=== PATIENT | male | born 1950 | race Caucasian/White ===

== ENCOUNTER → 2016-08-14 | Outpatient (CLI) | payer OTHER, MEDICARE ==
[~2016-08-14] MED LIST: ALBUTEROL SULFAT3 M3 IH; ASPIRIN 81M81 MG/TA2 PO; CHROMAX PO; COMPLETE SENIOR1 TA1 PO; COZAAR 50MG50 MG/TAB PO; EPA1000 MG PO; GLUCOPHAGE500 MG/TAB PO; GLUCOSAMINE & C1 CA1 PO; LANAMINS1 CAP PO; MELATONIN5 MG PO; NORCO 325 MG-51 TAB PO; NORVASC 5MG5 MG/TAB PO; PROAIR HFA0.09 MG/AC IH; RT SPIRIVA18 MCG IH
== END ==
LOC: COL.RAD 09:13
PROVIDERS: Orthopaedic Surgery Sports Medicine
DX: G57.83 Other specified mononeuropathies of bilateral lower limbs (principal); Z98.1 Arthrodesis status; Q06.8 Other specified congenital malformations of spinal cord; M48.06 Spinal stenosis, lumbar region
CPT/HCPCS: A9585

== ENCOUNTER 2017-01-23 16:00 | Outpatient (RCR) | payer OTHER, MEDICARE | END 2017-02-28 13:54 | disposition still patient (30) | LOC: WSPT 16:00 | DX: M48.02 Spinal stenosis, cervical region (principal); Z98.1 Arthrodesis status | CPT/HCPCS: G0283-GP; G8981-GP; G8982-GP ==

== ENCOUNTER 2017-07-11 15:30 | Outpatient (RCR) | payer BC, MEDICARE | END 2017-07-18 16:51 | disposition home or self-care (01) | LOC: WSPT 15:30 | DX: Z47.89 Encounter for other orthopedic aftercare (principal); M89.8X8 Other specified disorders of bone, other site; R29.6 Repeated falls; Z98.890 Other specified postprocedural states | CPT/HCPCS: G8978-GP; G8979-GP; G8980-GP ==

== ENCOUNTER 2018-05-27 15:45 | Outpatient (RCR) | payer BC, MEDICARE ==
[2018-06-03] MEDS ORDERED: BENICAR 20MG TA20 MG PO (21:20)
[2018-06-03] MEDS ORDERED: FLEXERIL 1010 MG/TAB (21:21)
[2018-06-05] MEDS ORDERED: PROTONIX 40MG T40 MG PO (09:32)
[2018-06-14] MEDS ORDERED: PRIL40 PO (09:50)
[2018-06-14] MEDS ORDERED: CARAFATE 1GM1 G (09:50)
== END 2018-06-24 | disposition home or self-care (01) ==
LOC: WSPT
DX: M47.16 Other spondylosis with myelopathy, lumbar region (principal); Z79.84 Long term (current) use of oral hypoglycemic drugs; Z79.82 Long term (current) use of aspirin; Z79.899 Other long term (current) drug therapy; Z98.890 Other specified postprocedural states
CPT/HCPCS: G8978-GP; G8979-GP

== ENCOUNTER 2018-06-03 19:42 | Inpatient (IN) | payer OTHER, MEDICARE ==
[~2018-06-03] VITALS: Ht 175.3 cm; Wt 121.5 kg
[2018-06-03 20:18] LABS: BASO # 0.1 (0.0-0.2); BASO % 0.9 % (0.0-2.0); EOS # 0.4 (0.0-0.7); EOS % 2.9 % (0-4.0); GRAN # 6.2 (1.4-6.5); GRAN % 50.9 % (42.2-75.2); HEMATOCRIT 40.8 % (42.0-52.0); HEMOGLOBIN 13.4 g/dl (13.5-18.0); LYMPH # 3.9 (1.2-3.4); LYMPH % 32.4 % (20.0-51.0); MEAN CELL VOLUME 87 fl (80.0-100.0); MEAN CORPUSCULAR HEMOGLOBIN 29 pg (27.0-31.0); MEAN CORPUSCULAR HGB CONC 33 g/dl (33.0-37.0); MEAN PLATELET VOLUME 11.2 fl (7.4-10.4); MONO # 1.5 (0.1-0.6); MONO % 12.6 % (1.7-9.3); PLATELET COUNT 287 K/mm3 (130-400); RED BLOOD COUNT 4.67 M/mm3 (4.20-5.60); REDCELL DISTRIBUTION WIDTH-CV 13.7 % (11.5-14.5)
[2018-06-03 20:23] LABS: PROTHROMBIN TIME 10.8 SECONDS (9.7-12.8)
[2018-06-03 20:26] LABS: PARTIAL THROMBOPLASTIN TIME 29.3 SECONDS (26.0-37.0)
[2018-06-03 20:31] LABS: ALBUMIN 4.1 gm/dL (3.5-5.0); BILIRUBIN,TOTAL 0.3 mg/dL (0.0-1.0); C-REACTIVE PROTEIN 0.5 mg/dL (0.0-0.9); CALCIUM 9.2 mg/dL (8.4-10.2); POTASSIUM 4.5 mmol/L (3.4-5.0)
[2018-06-03] MEDS ORDERED: BENICAR 20MG TA20 MG PO (21:20)
[2018-06-03] MEDS ORDERED: FLEXERIL 1010 MG/TAB (21:21)
[2018-06-03 22:33] VITALS: BP 116/77; PULSE 96; TEMP 98
[2018-06-03 22:34] VITALS: BP 116/77; PULSE 96; TEMP 98
[2018-06-03 22:44] LABS: TROPONIN-I < 0.012 ng/mL (0.000-0.034)
[2018-06-04 02:43] LABS: HEMATOCRIT 33.9 % (42.0-52.0); HEMOGLOBIN 11.1 g/dl (13.5-18.0)
[2018-06-04 04:00] VITALS: BP 102/67; PULSE 102; TEMP 98.8
[2018-06-04 05:30] LABS: BASO # 0.1 (0.0-0.2); EOS # 0.2 (0.0-0.7); EOS % 1.8 % (0-4.0); GRAN # 6.2 (1.4-6.5); GRAN % 57.3 % (42.2-75.2); LYMPH # 3.1 (1.2-3.4); MEAN CELL VOLUME 89 fl (80.0-100.0); MEAN CORPUSCULAR HEMOGLOBIN 29 pg (27.0-31.0); MEAN CORPUSCULAR HGB CONC 33 g/dl (33.0-37.0); MEAN PLATELET VOLUME 11.7 fl (7.4-10.4); MONO # 1.3 (0.1-0.6); MONO % 11.6 % (1.7-9.3); PLATELET COUNT 214 K/mm3 (130-400); RED BLOOD COUNT 3.85 M/mm3 (4.20-5.60); REDCELL DISTRIBUTION WIDTH-CV 13.6 % (11.5-14.5)
[2018-06-04 06:43] LABS: HEMATOCRIT 30.8 % (42.0-52.0); HEMOGLOBIN 9.9 g/dl (13.5-18.0)
[2018-06-04 07:05] LABS: CALCIUM 7.6 mg/dL (8.4-10.2); CREATININE, serum 0.9 mg/dL (0.66-1.25); POTASSIUM 4.6 mmol/L (3.4-5.0)
[2018-06-04 08:03] VITALS: BP 106/65; PULSE 93; TEMP 98
[2018-06-04 11:01] LABS: HEMATOCRIT 27.2 % (42.0-52.0); HEMOGLOBIN 8.7 g/dl (13.5-18.0)
[2018-06-04 11:22] LABS: RETIC # 0.06 M/mm3 (0.02-0.16); RETIC % 1.9 % (0.5-3.52)
[2018-06-04 11:46] VITALS: BP 113/62; PULSE 91; TEMP 98.8
[2018-06-04 14:07] LABS: HEMATOCRIT 26.5 % (42.0-52.0); HEMOGLOBIN 8.9 g/dl (13.5-18.0)
[2018-06-04 16:26] VITALS: BP 103/63; PULSE 96; TEMP 97.8
[2018-06-04 19:00] LABS: HEMATOCRIT 25.4 % (42.0-52.0); HEMOGLOBIN 8.3 g/dl (13.5-18.0)
[2018-06-04 20:08] VITALS: BP 114/37; PULSE 99; TEMP 98.1
[2018-06-04 22:34] LABS: HEMOGLOBIN 7.8 g/dl (13.5-18.0)
[2018-06-04 22:35] LABS: HEMATOCRIT 23.5 % (42.0-52.0)
[2018-06-05 04:19] VITALS: BP 121/68; PULSE 82; TEMP 98.1
[2018-06-05 06:11] LABS: BASO # 0.1 (0.0-0.2); BASO % 0.8 % (0.0-2.0); EOS # 0.2 (0.0-0.7); EOS % 2.2 % (0-4.0); GRAN # 5.3 (1.4-6.5); GRAN % 56.6 % (42.2-75.2); LYMPH # 2.7 (1.2-3.4); LYMPH % 28.8 % (20.0-51.0); MEAN CELL VOLUME 89 fl (80.0-100.0); MEAN CORPUSCULAR HGB CONC 33 g/dl (33.0-37.0); MEAN PLATELET VOLUME 11.3 fl (7.4-10.4); PLATELET COUNT 198 K/mm3 (130-400); RED BLOOD COUNT 2.84 M/mm3 (4.20-5.60); REDCELL DISTRIBUTION WIDTH-CV 13.6 % (11.5-14.5)
[2018-06-05 06:12] LABS: HEMATOCRIT 25.3 % (42.0-52.0); HEMOGLOBIN 8.3 g/dl (13.5-18.0); MEAN CORPUSCULAR HEMOGLOBIN 29 pg (27.0-31.0)
[2018-06-05 06:39] LABS: CALCIUM 7.7 mg/dL (8.4-10.2); CREATININE, serum 0.79 mg/dL (0.66-1.25); POTASSIUM 4.1 mmol/L (3.4-5.0)
[2018-06-05 07:56] VITALS: BP 136/74; PULSE 90; TEMP 97.3
[2018-06-05] MEDS ORDERED: PROTONIX 40MG T40 MG PO (09:32)
== END 2018-06-05 10:32 | disposition home or self-care (01) | DRG 378 ==
LOC: COL.ER 19:42 → MEDICAL 21:31
PROVIDERS: Emergency Medicine; Internal Medicine Gastroenterology; Nurse Practitioner Family; Physician Assistant
PROC: 0DB68ZX Excision of Stomach, Via Natural or Artificial Opening Endoscopic, Diagnostic (ICD-10-PCS; principal; 2018-06-04 07:00)
PROC: 0DJD8ZZ Inspection of Lower Intestinal Tract, Via Natural or Artificial Opening Endoscopic (ICD-10-PCS; 2018-06-04 07:00)
DX: K57.31 Diverticulosis of large intestine without perforation or abscess with bleeding (principal); M33.20 Polymyositis, organ involvement unspecified; D62 Acute posthemorrhagic anemia; Z87.891 Personal history of nicotine dependence; K25.4 Chronic or unspecified gastric ulcer with hemorrhage; Z66 Do not resuscitate; I10 Essential (primary) hypertension; E11.9 Type 2 diabetes mellitus without complications; K21.9 Gastro-esophageal reflux disease without esophagitis; E66.9 Obesity, unspecified
CPT/HCPCS: 99223-AI; J1815; J2250; J2405; J2704; J2765; J3010; J7030; Q9967

== ENCOUNTER → 2018-06-12 | Outpatient (CLI) | payer OTHER, MEDICARE ==
[~2018-06-12] MED LIST changes: +BENICAR 20MG TA20 MG PO; +CARAFATE 1GM1 G; +FLEXERIL 1010 MG/TAB; +PRIL40 PO; +PROTONIX 40MG T40 MG PO
== END ==
LOC: COL.RAD 08:37
DX: M48.02 Spinal stenosis, cervical region (principal); M47.812 Spondylosis without myelopathy or radiculopathy, cervical region; M99.71 Connective tissue and disc stenosis of intervertebral foramina of cervical region; E11.9 Type 2 diabetes mellitus without complications; Z98.1 Arthrodesis status
CPT/HCPCS: A9585

== ENCOUNTER 2018-06-14 09:32 | Emergency (ER) | payer OTHER, MEDICARE ==
[~2018-06-14] VITALS: Ht 175.3 cm; Wt 124.5 kg
[~2018-06-14 09:32] MED LIST changes: -CARAFATE 1GM1 G; -PRIL40 PO
[2018-06-14 09:37] VITALS: TEMP 97.6
[2018-06-14] MEDS ORDERED: CARAFATE 1GM1 G (09:50)
[2018-06-14] MEDS ORDERED: PRIL40 PO (09:50)
[2018-06-14 10:23] LABS: BASO # 0.1 (0.0-0.2); BASO % 0.6 % (0.0-2.0); EOS # 0.3 (0.0-0.7); EOS % 2.8 % (0-4.0); GRAN # 6.2 (1.4-6.5); GRAN % 64.2 % (42.2-75.2); LYMPH % 20.6 % (20.0-51.0); MEAN CELL VOLUME 89 fl (80.0-100.0); MEAN CORPUSCULAR HGB CONC 32 g/dl (33.0-37.0); MEAN PLATELET VOLUME 10.2 fl (7.4-10.4); MONO # 1.1 (0.1-0.6); MONO % 11.1 % (1.7-9.3); PLATELET COUNT 282 K/mm3 (130-400); RED BLOOD COUNT 3.29 M/mm3 (4.20-5.60); REDCELL DISTRIBUTION WIDTH-CV 14.9 % (11.5-14.5)
[2018-06-14 10:24] LABS: HEMATOCRIT 29.4 % (42.0-52.0); HEMOGLOBIN 9.4 g/dl (13.5-18.0); MEAN CORPUSCULAR HEMOGLOBIN 29 pg (27.0-31.0)
[2018-06-14 10:37] LABS: ALANINE AMINOTRANSFERASE 42 U/L (21-72); ALBUMIN 3.9 gm/dL (3.5-5.0); ALKALINE PHOSPHATASE 61 U/L (50-136); ANION GAP 6 mmol/L (7-16); AST,SGOT 27 U/L (15-37); BILIRUBIN,TOTAL 0.4 mg/dL (0.0-1.0); BLOOD UREA NITROGEN 17 mg/dL (9-20); C-REACTIVE PROTEIN 1.4 mg/dL (0.0-0.9); CALCIUM 8.6 mg/dL (8.4-10.2); CARBON DIOXIDE 30 mmol/L (22-30); CHLORIDE 103 mmol/L (98-107); CREATININE, serum 0.92 mg/dL (0.66-1.25); GLUCOSE 173 mg/dL (74-106); POTASSIUM 4.3 mmol/L (3.4-5.0); SODIUM 138 mmol/L (137-145); TOTAL PROTEIN 6.8 gm/dL (6.4-8.2)
[2018-06-14 10:43] LABS: ERYTHROCYTE SEDIMENTATION RATE 34 mm/hr (0-30)
[2018-06-14 10:46] LABS: TROPONIN-I < 0.012 ng/mL (0.000-0.034)
[2018-06-14 11:00] VITALS: BP 131/76
[2018-06-14 11:28] VITALS: PULSE 83
== END 2018-06-14 11:33 | disposition home or self-care (01) ==
LOC: COL.ER 09:32
PROVIDERS: Emergency Medicine
DX: D64.9 Anemia, unspecified (principal); M25.561 Pain in right knee; E11.9 Type 2 diabetes mellitus without complications; Z79.84 Long term (current) use of oral hypoglycemic drugs
CPT/HCPCS: J7030

== ENCOUNTER → 2018-07-04 | Outpatient (CLI) | payer OTHER, MEDICARE ==
[~2018-07-04] MED LIST changes: +CARAFATE 1GM1 G; +PRIL40 PO
== END ==
LOC: COL.RAD 08:00
DX: M25.551 Pain in right hip (principal)
CPT/HCPCS: J3301; Q9967

== ENCOUNTER 2018-08-29 15:45 | Outpatient (RCR) | payer OTHER, MEDICARE ==
[2018-09-10] MEDS ORDERED: MELATONIN5 M1 SL (10:47)
[2018-09-10] MEDS ORDERED: TURMERIC500 MG PO (10:47)
[2018-09-10] MEDS ORDERED: ALBUTEROL0.83 MG/ML IH (10:49)
[2018-09-15] MEDS ORDERED: PULMICORT90 MCG/Act IH (09:54)
== END 2018-09-17 13:53 | disposition home or self-care (01) ==
LOC: WSPT 15:45
DX: M48.02 Spinal stenosis, cervical region (principal); M54.12 Radiculopathy, cervical region; M47.12 Other spondylosis with myelopathy, cervical region; R29.2 Abnormal reflex; Z98.1 Arthrodesis status; Z79.84 Long term (current) use of oral hypoglycemic drugs; Z79.82 Long term (current) use of aspirin; Z79.899 Other long term (current) drug therapy

== ENCOUNTER 2018-09-15 09:43 | Outpatient (CLI) | payer BC, MEDICARE ==
[2018-09-15] VITALS (7 sets, daily range): BP systolic 131–172; BP diastolic 83–91; PULSE 84–96
[~2018-09-15] VITALS: Ht 175.3 cm; Wt 126.0 kg
[~2018-09-15 09:43] MED LIST changes: +ALBUTEROL0.83 MG/ML IH; +MELATONIN5 M1 SL; +TURMERIC500 MG PO
[2018-09-15] MEDS ORDERED: PULMICORT90 MCG/Act IH (09:54)
--- NOTE | 2018-09-15 13:00 | NUR ---
Per pt request,Disc provided to pt.Dr Lawler ok'd disc to be sent with pt.Discharge instructions given to pt.pt verbalizes understanding.pt escorted out by this nurse.
== END 2018-09-15 13:14 | disposition home or self-care (01) ==
LOC: COL.RAD 09:43
DX: M48.02 Spinal stenosis, cervical region (principal); M47.12 Other spondylosis with myelopathy, cervical region; M47.22 Other spondylosis with radiculopathy, cervical region; M51.34 Other intervertebral disc degeneration, thoracic region; M48.05 Spinal stenosis, thoracolumbar region; Z98.1 Arthrodesis status
CPT/HCPCS: Q9965

== ENCOUNTER 2018-09-30 13:18 | Emergency (ER) | payer BC, MEDICARE ==
[~2018-09-30] VITALS: Ht 175.3 cm; Wt 115.9 kg
[~2018-09-30 13:18] MED LIST changes: +PULMICORT90 MCG/Act IH
[2018-09-30 13:27] VITALS: TEMP 97.8
[2018-09-30] MEDS ORDERED: FLEXERIL 1010 MG/TAB PO (14:04)
[2018-09-30 14:29] LABS: COLLECTION METHOD CLEAN CATCH
[2018-09-30 14:35] LABS: MUCOUS Present /lpf; PH 5 (5-8); SQUAMOUS EPITHELIAL 0-2 /hpf; URINE APPEARANCE Clear; URINE BACTERIA None Seen /hpf; URINE BILIRUBIN Negative (NEGATIVE); URINE BLOOD Negative (NEGATIVE); URINE COLOR Yellow; URINE GLUCOSE Negative (NEGATIVE); URINE KETONE Negative (NEGATIVE); URINE LEUKOCYTE ESTERASE Negative (NEGATIVE); URINE NITRATE Negative (NEGATIVE); URINE PROTEIN(semi-quant) Negative (NEGATIVE); URINE RBC 0-2 /hpf; URINE UROBILINOGEN Negative (NEGATIVE)
[2018-09-30 14:45] LABS: BASO # 0.1 (0.0-0.2); BASO % 0.8 % (0.0-2.0); EOS # 0.2 (0.0-0.7); EOS % 1.7 % (0-4.0); GRAN # 6.5 (1.4-6.5); GRAN % 61.3 % (42.2-75.2); HEMOGLOBIN 13.5 g/dl (13.5-18.0); LYMPH # 2.6 (1.2-3.4); LYMPH % 24.2 % (20.0-51.0); MEAN CELL VOLUME 77 fl (80.0-100.0); MEAN CORPUSCULAR HEMOGLOBIN 24 pg (27.0-31.0); MEAN CORPUSCULAR HGB CONC 31 g/dl (33.0-37.0); MEAN PLATELET VOLUME 10.9 fl (7.4-10.4); MONO # 1.2 (0.1-0.6); MONO % 11.6 % (1.7-9.3); PLATELET COUNT 286 K/mm3 (130-400); RED BLOOD COUNT 5.62 M/mm3 (4.20-5.60); REDCELL DISTRIBUTION WIDTH-CV 19.6 % (11.5-14.5)
[2018-09-30 15:17] LABS: ALBUMIN 4.1 gm/dL (3.5-5.0); BILIRUBIN,TOTAL 0.3 mg/dL (0.0-1.0); CALCIUM 9.3 mg/dL (8.4-10.2); CREATININE, serum 0.9 mg/dL (0.66-1.25); POTASSIUM 4.1 mmol/L (3.4-5.0); TOTAL PROTEIN 7.5 gm/dL (6.4-8.2)
[2018-09-30] MEDS ORDERED: AMOXICILLIN 8751 TAB PO (15:25)
[2018-09-30 15:41] VITALS: BP 162/99; PULSE 90
== END 2018-09-30 15:43 | disposition home or self-care (01) ==
LOC: COL.ER 13:18
PROVIDERS: Emergency Medicine
DX: R10.32 Left lower quadrant pain (principal); Z87.891 Personal history of nicotine dependence
CPT/HCPCS: J7030; Q9967

== ENCOUNTER 2018-11-12 13:30 | Outpatient (RCR) | payer BC, MEDICARE ==
[~2018-11-12 13:30] MED LIST changes: +AMOXICILLIN 8751 TAB PO; +FLEXERIL 1010 MG/TAB PO
== END 2018-12-11 15:02 | disposition home or self-care (01) ==
LOC: WSPT 13:30
DX: M54.12 Radiculopathy, cervical region (principal); M48.02 Spinal stenosis, cervical region; M54.16 Radiculopathy, lumbar region; Z98.1 Arthrodesis status

== ENCOUNTER 2019-03-20 13:00 | Outpatient (RCR) | payer BC, MEDICARE | END 2019-03-31 | disposition home or self-care (01) | LOC: WSPT | DX: M54.16 Radiculopathy, lumbar region (principal); M48.02 Spinal stenosis, cervical region; G99.2 Myelopathy in diseases classified elsewhere; M43.16 Spondylolisthesis, lumbar region; M54.12 Radiculopathy, cervical region; Z98.1 Arthrodesis status ==

== ENCOUNTER → 2019-05-25 | Outpatient (CLI) | payer BC, MEDICARE | LOC: COL.RAD 10:40 | DX: Z01.812 Encounter for preprocedural laboratory examination (principal); M51.16 Intervertebral disc disorders with radiculopathy, lumbar region; M48.061 Spinal stenosis, lumbar region without neurogenic claudication; Z98.1 Arthrodesis status | CPT/HCPCS: A9585 ==

== ENCOUNTER 2019-05-29 10:45 | Outpatient (RCR) | payer BC, MEDICARE | END 2019-08-18 | disposition still patient (30) | LOC: WSPT | DX: S39.012A Strain of muscle, fascia and tendon of lower back, initial encounter (principal) ==

== ENCOUNTER → 2019-06-17 | Outpatient (CLI) | payer BC, MEDICARE | LOC: MHCPAIN 07:49 | DX: G89.29 Other chronic pain (principal); M47.817 Spondylosis without myelopathy or radiculopathy, lumbosacral region; M54.16 Radiculopathy, lumbar region; M53.3 Sacrococcygeal disorders, not elsewhere classified | CPT/HCPCS: G0463 ==

== ENCOUNTER → 2019-06-18 | Outpatient (CLI) | payer BC, MEDICARE | LOC: MHCPAIN 09:42 | DX: M47.817 Spondylosis without myelopathy or radiculopathy, lumbosacral region (principal); M54.16 Radiculopathy, lumbar region | CPT/HCPCS: J1100; Q9967 ==

== ENCOUNTER → 2019-06-30 | Outpatient (CLI) | payer BC, MEDICARE | LOC: MHCPAIN 08:14 | DX: M47.817 Spondylosis without myelopathy or radiculopathy, lumbosacral region (principal); M54.16 Radiculopathy, lumbar region | CPT/HCPCS: G0463 ==

== ENCOUNTER → 2019-07-06 | Outpatient (CLI) | payer BC, MEDICARE | LOC: MHCPAIN 12:04 | DX: M51.26 Other intervertebral disc displacement, lumbar region (principal); M54.16 Radiculopathy, lumbar region | CPT/HCPCS: J1100; Q9967 ==

== ENCOUNTER → 2019-08-04 | Outpatient (CLI) | payer BC, MEDICARE | LOC: MHCPAIN 09:34 | DX: M47.817 Spondylosis without myelopathy or radiculopathy, lumbosacral region (principal); M54.16 Radiculopathy, lumbar region | CPT/HCPCS: G0463 ==

== ENCOUNTER 2019-09-22 09:15 | Outpatient (RCR) | payer BC, MEDICARE | END 2019-11-11 14:24 | disposition home or self-care (01) | LOC: WSPT 09:15 | DX: M54.16 Radiculopathy, lumbar region (principal) ==

== ENCOUNTER → 2019-12-23 | Outpatient (CLI) | payer BC, MEDICARE | LOC: COL.RAD 12-18 14:45 | DX: Z01.812 Encounter for preprocedural laboratory examination (principal); M48.02 Spinal stenosis, cervical region; M47.812 Spondylosis without myelopathy or radiculopathy, cervical region | CPT/HCPCS: A9585 ==

== ENCOUNTER → 2020-01-19 | Outpatient (CLI) | payer BC, MEDICARE | LOC: COL.RAD 10:56 | DX: M54.12 Radiculopathy, cervical region (principal); M48.02 Spinal stenosis, cervical region; G99.2 Myelopathy in diseases classified elsewhere; Z98.1 Arthrodesis status ==

== ENCOUNTER → 2020-02-16 | Outpatient (CLI) | payer BC, MEDICARE | LOC: MHCPAIN 08:02 | DX: M47.817 Spondylosis without myelopathy or radiculopathy, lumbosacral region (principal); M54.5 Low back pain; M54.2 Cervicalgia; M96.1 Postlaminectomy syndrome, not elsewhere classified; M54.12 Radiculopathy, cervical region; M50.90 Cervical disc disorder, unspecified, unspecified cervical region | CPT/HCPCS: G0463 ==

== ENCOUNTER 2020-03-10 08:00 | Outpatient (RCR) | payer BC, MEDICARE | END 2020-05-02 | disposition home or self-care (01) | LOC: WSPT | DX: M48.02 Spinal stenosis, cervical region (principal); M47.816 Spondylosis without myelopathy or radiculopathy, lumbar region; M43.16 Spondylolisthesis, lumbar region; M54.12 Radiculopathy, cervical region; Z98.1 Arthrodesis status | CPT/HCPCS: G0283-GP ==

== ENCOUNTER → 2020-05-18 | Outpatient (CLI) | payer BC, MEDICARE | LOC: MHCPAIN 08:34 | DX: M47.812 Spondylosis without myelopathy or radiculopathy, cervical region (principal); M54.2 Cervicalgia; G89.29 Other chronic pain; M54.12 Radiculopathy, cervical region | CPT/HCPCS: G0463 ==

== ENCOUNTER → 2020-05-26 | Outpatient (CLI) | payer BC, MEDICARE | LOC: MHCPAIN 15:02 | DX: M47.812 Spondylosis without myelopathy or radiculopathy, cervical region (principal); M54.12 Radiculopathy, cervical region | CPT/HCPCS: J1100; Q9967 ==

== ENCOUNTER → 2020-06-13 | Outpatient (CLI) | payer BC, MEDICARE | LOC: MHCPAIN 09:09 | DX: M47.812 Spondylosis without myelopathy or radiculopathy, cervical region (principal); M54.12 Radiculopathy, cervical region; G89.29 Other chronic pain; M96.1 Postlaminectomy syndrome, not elsewhere classified | CPT/HCPCS: G0463 ==

== ENCOUNTER 2020-06-27 14:00 | Outpatient (RCR) | payer BC, MEDICARE | END 2020-07-16 14:35 | disposition home or self-care (01) | LOC: WSPT 14:00 | DX: M48.02 Spinal stenosis, cervical region (principal); M43.16 Spondylolisthesis, lumbar region; M54.16 Radiculopathy, lumbar region; M54.12 Radiculopathy, cervical region; M25.562 Pain in left knee; R26.0 Ataxic gait ==